=== PATIENT | male | born 1995 | race Hispanic/Latino ===

== ENCOUNTER 2024-09-20 02:21 | Emergency (ER) | payer OTHER ==
[~2024-09-20] VITALS: Ht 180.3 cm; Wt 163.3 kg
--- NOTE | 2024-09-20 02:50 | ERN ---
General Chief Complaint: Shortness of Breath Stated Complaint: C/O FEVER, COUGH, SOB Time Seen by MD: 02:39 Time Seen by Midlevel: 02:39 Source: patient History of Present Illness Initial Comments 28-year-old male who presents to the emergency department due to fever onset an hour prior to arrival. Patient states temp was 105 and took ibuprofen. Reports cough, difficulty breathing, nausea, diarrhea. Denies any chest pain, abdominal pain, dysuria or further associated symptoms. Denies significant past medical history. Allergies: Coded Allergies: No Known Allergies (Unverified Allergy, Unknown, 09/20/24) Past Medical History Past Medical History: No Pertinent History Past Surgical History: Appendectomy ROS Dictation Constitutional: Positive for fever, chills Negative for fever,chills, and weight loss Eyes: Negative for injury, pain,redness, and discharge ENT: Negative for injury,pain or swelling Cardiovascular: Negative for chest pain, palpitations, and edema Respiratory: Positive for shortness of breath, cough Negative for wheezing Abdomen/GI: Positive for nausea, diarrhea Negative for abdominal pain, vomiting , and constipation Back: Negative for injury and pain : Negative for painful urination, bleeding or discharge MS/Extremity: Negative for injury and deformity Skin: Negative for rash, and discoloration Neuro: Negative for headache, weakness, numbness, tingling, and seizure Psych: Negative for suicide ideation, homicidal ideation, and hallucinations Physical Exam General Appearance: (+) mild distress Orientation: (+) alert, (+) oriented x 3 Head/Face Trauma: No Eye: bilateral eye normal inspection, bilateral eye PERRL, bilateral eye EOMI Ear, Nose, Throat: (+) hearing grossly normal, (+) normal ENT inspection Neck: (+) normal inspection, (+) supple Respiratory: (+) chest non-tender, (+) lungs clear, (+) well ventilated Heart: (+) regular, (+) no gallop Vascular: (+) no edema Gastrointestinal: (+) soft, (+) non-tender, (+) bowel sound absent Results Laboratory and Microbiology Lab and Micro Result Laboratory Tests Test 09/20/24 02:35 09/20/24 03:35 09/20/24 04:31 Influenza Type A Antigen Negative For Type A Influenza Type B Antigen Negative For Type B SARS-CoV-2, RNA, NAAT NEGATIVE SARS CoV-2 Group A Streptococcus Rapid negative (NEGATIVE) White Blood Count 7.1 K/uL (4.8-10.8) Red Blood Count 5.41 MIL/uL (4.50-6.20) Hemoglobin 15.5 g/dL (14.0-18.0) Hematocrit 45.3 % (42-54) Mean Corpuscular Volume 83.7 fL (79-99) Mean Corpuscular Hemoglobin 28.7 pg (27.0-33.0) Mean Corpuscular Hemoglobin Concent 34.2 g/dL (32.0-36.0) Red Cell Distribution Width 12.9 % (11.0-15.5) Platelet Count 258 K/uL (130-400) Mean Platelet Volume 9.5 fL (7.5-10.5) Immature Granulocyte % (Auto) 0.4 % (0-1) Neutrophils (%) (Auto) 82.9 % (40.0-77.0) H Lymphocytes (%) (Auto) 9.6 % (21.0-51.0) L Monocytes (%) (Auto) 6.5 % (3.0-13.0) Eosinophils (%) (Auto) 0.3 % (0.0-8.0) Basophils (%) (Auto) 0.3 % (0.0-5.0) Neutrophils # (Auto) 5.9 K/uL (1.8-7.7) Lymphocytes # (Auto) 0.7 K/uL (1.0-4.8) L Monocytes # (Auto) 0.5 K/uL (0.1-1.0) Eosinophils # (Auto) 0.02 K/uL (0.00-0.70) Basophils # (Auto) 0.02 K/uL (0.00-0.20) Absolute Immature Granulocyte (auto 0.03 K/uL (0-1) Nucleated Red Blood Cells 0.0 % (0.0-0.19) White Cell Morphology Comment See comments Sodium Level 135 mmol/L (136-145) L Potassium Level 4.1 mmol/L (3.5-5.1) Chloride Level 102 mmol/L (101-111) Carbon Dioxide Level 24 mmol/L (21-32) Blood Urea Nitrogen 15 mg/dL (7-18) Creatinine 0.8 mg/dL (0.5-1.3) Glomerular Filtration Rate Calc 123 mL/min (>90) Random Glucose 166 mg/dL (70-105) H Total Calcium 8.0 mg/dL (8.5-10.1) L Troponin I High Sensitivity 7 ng/L (4-75) Urine Color YELLOW (YELLOW) Urine Appearance CLEAR (CLEAR) Urine pH 6.0 (5.0-8.0) Urine Specific [place] 1.036 (1.001-1.031) Urine Protein 10 mg/dL (NEGATIVE) H Urine Glucose (UA) NEGATIVE mg/dL (NEGATIVE) Urine Ketones NEGATIVE mg/dL (NEGATIVE) Urine Occult Blood NEGATIVE (NEGATIVE) Urine Nitrate NEGATIVE (NEGATIVE) Urine Bilirubin NEGATIVE mg/dL (NEGATIVE) Urine Urobilinogen 2.0 mg/dL (0.2-1.0) H Urine Leukocyte Esterase NEGATIVE Tricia/uL Urine RBC 0-1 /HPF (0-1) Urine WBC 0-1 /HPF (0-1) Urine Squamous Epithelial Cells RARE /HPF (0-2) Urine Bacteria None /HPF (None Seen) MDM MDM: Differential diagnosis: Heat stroke, electrolyte abnormality, dehydration, GI upset, Rationale: Tests considered and ordered secondary to shared decision making include: Previous outside records reviewed: Old ER visits. Risk of complication and/or morbidity or mortality of patient management: None Medications-Per medication reconciliation Need for hospitalization: Patient does meet criteria for hospitalization. Need for emergency major/minor surgery: No There are no social concerns with this patient. Prescription drug management Prescriptions will include symptomatic care Patient's prior external medical records from other ER visits were reviewed by me as indicated. Prior testing and results from previous visits were reviewed. Prior tests were taken into account with medical decision making and resource utilization, independent historian/historians were used to obtain complete medical history. I independently interpreted the test that were performed, results were reviewed by me and considered findings on radiology if ordered. Patient's electrolytes are normal chest x-ray is normal nasal swabs are normal CBC shows a left shift in his neutrophils and then his urine is extremely concentrated. He does not have a urinary tract infection . Patient feels better after receiving 2 L of fluid. ED Course Orders Procedure Category Date Status Time Covid Rna Naat LAB 09/20/24 Complete 02:39 Influenza Type A & B, LAB 09/20/24 Complete Rapid 02:39 Rapid (Group A Strep) LAB 09/20/24 Complete 02:39 Cbc With Differential LAB 09/20/24 Complete 02:46 Basic Metabolic Panel LAB 09/20/24 Complete 02:46 Troponin I High LAB 09/20/24 Complete Sensitivity 02:46 12 Lead Ekg Tracing- EKG 09/20/24 Logged Technical 02:46 Chest 1vw RAD 09/20/24 Resulted 02:46 Urinalysis LAB 09/20/24 Complete W/Microscopic 02:46 0.9%Nacl 1000ml (Ns PHA 09/20/24 Complete 1000ml) 03:00 Ondansetron 4mg Inj PHA 09/20/24 Complete (Zofran 4mg Inj) 03:00 Acetaminophen 500mg PHA 09/20/24 Complete Tab (Tylenol 500mg T 04:00 Lactated Ringers PHA 09/20/24 Complete 1000ml (Lactated 03:48 Acetaminophen 500mg PHA 09/20/24 Complete Tab (Tylenol 500mg T 04:00 Current Medications Medications (Trade) Dose Ordered Sig/Lewis Route PRN Reason Start Time Stop Time Status Last Admin Dose Admin Acetaminophen (TYLenol 500MG TAB) 1,000 mg ONCE ONCE PO 09/20/24 04:00 09/20/24 03:51 DC Acetaminophen (TYLenol 500MG TAB) 1,000 mg ONCE ONCE PO 09/20/24 04:00 09/20/24 04:01 DC 09/20/24 03:54 Lactated Ringer's (Lactated Ringers 1000ml) 2,000 ml BOLUS STAT IV 09/20/24 03:48 09/20/24 03:50 DC 09/20/24 03:54 Ondansetron HCl (zoFRAN 4MG INJ) 4 mg ONCE ONCE IVP 09/20/24 03:00 09/20/24 03:01 DC 09/20/24 03:42 Sodium Chloride 1,000 ml @ 0 mls/hr ONCE ONCE IV 09/20/24 03:00 09/20/24 03:50 DC 09/20/24 03:42 Vital Signs Date Time Temp Pulse Resp B/P (MAP) Pulse Ox O2 Delivery O2 Flow Rate FiO2 09/20/24 04:35 100 18 116/74 95 Room Air* 0 21 09/20/24 03:54 99.5 09/20/24 03:47 99.5 111 18 119/63 98 Room Air* 0 21 09/20/24 02:28 99.3 126 20 143/63 94 Room Air DX & DISP Disposition: Discharge Departure Impression: Primary Impression: Dehydration Additional Impression: Heat stroke Condition: Stable Additional Instructions: I think you became severely dehydrated and almost suffered from heat stroke. Your urine was extremely concentrated. You feel better after receiving 2 L of fluid. You have no signs of infection but you do have a slight bump in the percentage of neutrophils indicating inflammation consistent with heat stroke. Her chemistry panel is normal including your kidneys. You continue to feel a little out of sorts for the next day or two as your body recovers. Please stay well hydrated Please try to drink enough fluid each day that your urine runs clear at least once a day. Please follow-up with your primary care physician if your symptoms persist. MARIZA BARR Sep 20, 2024 02:50 HEAVENLY CARCAMO MD Sep 20, 2024 05:23
[2024-09-20 02:58] LABS: RAPID GROUP A STREP negative (NEGATIVE)
[2024-09-20 03:04] LABS: SARS-CoV-2, RNA, NAAT NEGATIVE SARS CoV-2 (NEGATIVE)
[2024-09-20 03:08] LABS: INFLUENZA TYPE A Negative For Type A (NEGATIVE); INFLUENZA TYPE B Negative For Type B (NEGATIVE)
[2024-09-20 03:42] LABS: IMMATURE GRANULOCYTE ABSOLUTE 0.03 K/uL (0-1); NUCLEATED RED BLOOD CELLS 0.0 % (0.0-0.19); PLATELET COUNT (AUTO) 258 K/uL (130-400); RED BLOOD CELL COUNT(AUTO) 5.41 MIL/uL (4.50-6.20); RED CELL DISTRIBUTION WIDTH 12.9 % (11.0-15.5); WHITE BLOOD COUNT (AUTO) 7.1 K/uL (4.8-10.8)
[2024-09-20] MEDS: 0.9%NACL 1000ML 1,000 ML IV ONE (03:42)
--- NOTE | 2024-09-20 03:45 | HMCIMG ---
EXAM: CR Chest, 1 view CLINICAL HISTORY: Shortness of breath. Fever. COMPARISON: None provided. FINDINGS: The right CP angle is excluded from the image. No large pleural effusion or pneumothorax. No acute infiltrates or consolidation. The cardiomediastinal silhouette is within normal limits. No acute osseous abnormality. IMPRESSION: No acute cardiopulmonary process is evident. /[place]
[2024-09-20 03:47] VITALS: TEMP 99.5
[2024-09-20 03:49] LABS: CREATININE 0.8 mg/dL (0.5-1.3); GLOMERULAR FILTR. RATE CALC 123.0 mL/min (>90); GLUCOSE,RANDOM 166.0 mg/dL (70-105); SODIUM SERUM 135.0 mmol/L (136-145); UREA NITROGEN, BLOOD 15.0 mg/dL (7-18)
[2024-09-20] MEDS: LACTATED RINGERS 1000ML IV STA (03:54)
[2024-09-20 04:35] VITALS: BP 116/74; PULSE 100; RESP 18; O2SAT 95
[2024-09-20 04:39] VITALS: TEMP 99.2
[2024-09-20 04:42] LABS: APPEARANCE,URINE CLEAR (CLEAR); GLUCOSE, URINE (UA) NEGATIVE (NEGATIVE); LEUKOCYTE ESTERASE ,URINE NEGATIVE Leu/uL (NEGATIVE); NITRATE,URINE NEGATIVE (NEGATIVE); OCCULT BLOOD,URINE NEGATIVE (NEGATIVE); SQUAMOUS EPITHELIAL CELL,UR RARE /HPF (0-2)
--- NOTE | 2024-09-20 06:21 | EKG ---
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
== END 2024-09-20 06:22 | disposition home or self-care (01) ==
LOC: EDH 02:21
DX: E86.0 Dehydration (principal); T67.01XA Heatstroke and sunstroke, initial encounter; Z90.49 Acquired absence of other specified parts of digestive tract; Z20.822 Contact with and (suspected) exposure to COVID-19; X58.XXXA Exposure to other specified factors, initial encounter; Y93.89 Activity, other specified; Y92.89 Other specified places as the place of occurrence of the external cause; Y99.8 Other external cause status
CPT/HCPCS: 99285; 96374; 71045; 87635; 96361; 84484; 80048; 85025; 87880; 87804 ×2; 81001; 36415; 93005; J7120; J7030; J2405